=== PATIENT | male | born 1995 | race African-American/Black ===

== ENCOUNTER 2017-08-26 03:45 | Emergency (ER) | payer SELFPAY ==
[~2017-08-26] VITALS: Ht 177.8 cm; Wt 77.1 kg
[2017-08-26] MEDS ORDERED: LACTATED RINGERS 1,000 ML IV STA (03:54)
[2017-08-26] MEDS ORDERED: ONDANSETRON 4 MG/2 ML (SDV) Z0FRAN IVP ONE (04:00)
[2017-08-26 04:05] LABS: BASOPHILS % (AUTO) 0 % (0-10); EOSINOPHILS % (AUTO) 0 % (0-10); HEMATOCRIT 42 % (40-54); HEMOGLOBIN 14.6 G/DL (13.3-17.7); LYMPHOCYTES # (AUTO) 1.8 X 10^3 (1.0-4.0); LYMPHOCYTES % (AUTO) 16 % (12-44); MEAN CORPUSCULAR HEMOGLOBIN 27 PG (25-34); MEAN CORPUSCULAR HGB CONC 34 G/DL (32-36); MEAN CORPUSCULAR VOLUME 79 FL (80-99); MEAN PLATELET VOLUME 9.4 FL (7.4-10.4); MONOCYTES # (AUTO) 1.1 X 10^3 (0.0-1.0); MONOCYTES % (AUTO) 10 % (0-12); NEUTROPHILS # (AUTO) 8.5 X 10^3 (1.8-7.8); NEUTROPHILS % (AUTO) 75 % (42-75); PLATELET COUNT 236 10^3/uL (130-400); RED BLOOD COUNT 5.36 10^6/uL (4.35-5.85); RED CELL DISTRIBUTION WIDTH 12.9 % (10.0-14.5); WHITE BLOOD COUNT 11.4 10^3/uL (4.3-11.0)
[2017-08-26 04:20] LABS: ALANINE AMINOTRANSFERASE 14 U/L (0-55); ALBUMIN 4.7 GM/DL (3.2-4.5); ALKALINE PHOSPHATASE 43 U/L (40-136); BILIRUBIN,TOTAL 0.7 MG/DL (0.1-1.0); BUN/CREATININE RATIO 13; CALCIUM 9.1 MG/DL (8.5-10.1); CARBON DIOXIDE 19 MMOL/L (21-32); CHLORIDE 108 MMOL/L (98-107); CREATININE SERUM 0.79 MG/DL (0.60-1.30); GFR ESTIMATED > 60; GLUCOSE 120 MG/DL (70-105); POTASSIUM 3.5 MMOL/L (3.6-5.0); SODIUM 141 MMOL/L (135-145); TOTAL PROTEIN 7.2 GM/DL (6.4-8.2)
[2017-08-26] MEDS ORDERED: LACTATED RINGERS 1,000 ML IV ONE (04:42)
--- NOTE | 2017-08-26 04:42 | ED General ---
General Chief Complaint: Substance Abuse Stated Complaint: AMS,ETOH Nursing Triage Note: PT BROUGHT TO ED BY SO WITH C/O ETOH. SHE STATES HE HAD GONE OUT WITH FRIENDS AND WAS BROUGHT HOME AND DROPPED OFF. SHE STATES HE WAS ON THE LIVING ROOM FLOOR NOT RESPONDING TO HER. PT OUT OF CAR BY THIS RN AND FRIEND OF PT. Nursing Sepsis Screen: No Definite Risk Source of Information: Other (GIRLFRIEND) Exam Limitations: Intoxication History of Present Illness Date Seen by Provider: Aug 26, 2017 Time Seen by Provider: 04:15 Initial Comments PT ARRIVES VIA POV--REQUIRED FULL ASSIST TO GET OUT OF VEHICLE GIRLFRIEND STATES THAT PT WENT OUT DRINKING TONIGHT AFTER WORK WITH FRIENDS, AND FRIENDS DROPPED HIM OFF AT HOUSE AND LEFT GIRLFRIEND STATES SHE FOUND HIM LAYING ON THE LIVING ROOM FLOOR PASSED OUT/ UNRESPONSIVE. SHE CALLED A FRIEND TO HELP HER GET HIM FROM THE HOUSE TO VEHICLE GIRLFRIEND STATES THAT HE DOES NOT DRINK OFTEN NO DR Allergies and Home Medications Allergies Coded Allergies: No Known Drug Allergies (Unverified , 08/26/17) Constitutional: other (PT UNABLE TO TALK) Past Nneztat-Hndaqi-Hvoovk Hx Immunizations Up To Date Tetanus Booster (TDap): Unknown Family Medical History Other ALL PMH IS NOT OBTAINABLE Physical Exam Vital Signs Vital Signs - First Documented 08/26/17 03:50 Temp 97.1 Pulse 76 Resp 10 B/P (MAP) 108/49 (68) O2 Delivery Room Air Capillary Refill : Less Than 3 Seconds General Appearance: Other (PT UNRESPONSIVE. REEKS OF ETOH. PT WITHOUT ANY SNOROUS BREATHING AND ABLE TO MAINTAIN AIRWAY, AND O2 SATS REMAINED IN MID TO UPPER 90'S ON ROOM AIR. NO VOMITING OR EVIDENCE OF ASPIRATION. ) Respiratory: Normal Breath Sounds Cardiovascular: Regular Rate, Rhythm Neurologic/Psychiatric: Other (UNRESPONSIVE) Skin: Other (NO EXTERNAL EVIDENCE OF TRAUMA) Progress/Results/Core Measures Suspected Sepsis Recent Fever Within 48 Hours: No Infection Criteria Present: None New/Unexplained Altered Menta: No Sepsis Screen: No Definite Risk Sepsis Diagnosis: SIRS Temperature:97.1 Pulse: 76 Respiratory Rate: 10 Laboratory Tests 08/26/17 03:50: White Blood Count 11.4H Blood Pressure 108 /49 Mean: 68 Laboratory Tests 08/26/17 03:50: Creatinine 0.79, Platelet Count 236, Total Bilirubin 0.7 Results/Orders Lab Results Laboratory Tests Test 08/26/17 03:50 Range/Units White Blood Count 11.4 H 4.3-11.0 10^3/uL Red Blood Count 5.36 4.35-5.85 10^6/uL Hemoglobin 14.6 13.3-17.7 G/DL Hematocrit 42 40-54 % Mean Corpuscular Volume 79 L 80-99 FL Mean Corpuscular Hemoglobin 27 25-34 PG Mean Corpuscular Hemoglobin Concent 34 32-36 G/DL Red Cell Distribution Width 12.9 10.0-14.5 % Platelet Count 236 130-400 10^3/uL Mean Platelet Volume 9.4 7.4-10.4 FL Neutrophils (%) (Auto) 75 42-75 % Lymphocytes (%) (Auto) 16 12-44 % Monocytes (%) (Auto) 10 0-12 % Eosinophils (%) (Auto) 0 0-10 % Basophils (%) (Auto) 0 0-10 % Neutrophils # (Auto) 8.5 H 1.8-7.8 X 10^3 Lymphocytes # (Auto) 1.8 1.0-4.0 X 10^3 Monocytes # (Auto) 1.1 H 0.0-1.0 X 10^3 Eosinophils # (Auto) 0.0 0.0-0.3 10^3/uL Basophils # (Auto) 0.0 0.0-0.1 10^3/uL Sodium Level 141 135-145 MMOL/L Potassium Level 3.5 L 3.6-5.0 MMOL/L Chloride Level 108 H 98-107 MMOL/L Carbon Dioxide Level 19 L 21-32 MMOL/L Anion Gap 14 5-14 MMOL/L Blood Urea Nitrogen 10 7-18 MG/DL Creatinine 0.79 0.60-1.30 MG/DL Estimat Glomerular Filtration Rate > 60 BUN/Creatinine Ratio 13 Glucose Level 120 H 70-105 MG/DL Calcium Level 9.1 8.5-10.1 MG/DL Total Bilirubin 0.7 0.1-1.0 MG/DL Aspartate Amino Transf (AST/SGOT) 20 5-34 U/L Alanine Aminotransferase (ALT/SGPT) 14 0-55 U/L Alkaline Phosphatase 43 40-136 U/L Total Protein 7.2 6.4-8.2 GM/DL Albumin 4.7 H 3.2-4.5 GM/DL Serum Alcohol 169 H <10 MG/DL My Orders Orders - JIMBO DUBOIS DO Saline Lock/Iv-Start (08/26/17 03:54) Lactated Ringers (Lr 1000 Ml Iv Solution (08/26/17 03:54) Ondansetron Injection (Zofran Injectio (08/26/17 04:00) Alcohol (08/26/17 03:54) Comprehensive Metabolic Panel (08/26/17 03:54) Cbc With Automated Diff (08/26/17 03:54) Lactated Ringers (Lr 1000 Ml Iv Solution (08/26/17 04:42) Medications Given in ED Current Medications Medications Dose Ordered Sig/Rajni Route Start Time Stop Time Status Last Admin Dose Admin Lactated Ringer's 1,000 ml @ 0 mls/hr Q0M ONCE IV 08/26/17 04:42 08/26/17 04:44 DC 08/26/17 04:45 0 MLS/HR Ondansetron HCl 4 mg ONCE ONCE IVP 08/26/17 04:00 08/26/17 04:01 DC 08/26/17 03:50 4 MG Vital Signs/I&O Vital Sign - Last 12Hours 08/26/17 03:50 Temp 97.1 Pulse 76 Resp 10 B/P (MAP) 108/49 (68) O2 Delivery Room Air Capillary Refill : Less Than 3 Seconds Blood Pressure Mean: 68 Progress Note : Progress Note PT SLEPT FOR ENTIRE ER STAY 1830--ABLE TO EASILY WAKE PT AND HE IS ABLE TO FOLLOW COMMANDS, SPEECH CLEAR AND GAIT STEADY AND IS ABLE TO WALK TO AND FROM BATHROOM ON HIS OWN WITHOUT DIFFICULTY Departure Impression Impression: Primary Impression: Alcohol intoxication Disposition: 01 HOME, SELF-CARE Condition: Improved Departure-Patient Inst. Referrals: NO,LOCAL PHYSICIAN (PCP/Family) Primary Care Physician Patient Instructions: ALCOHOL AND SUBSTANCE ABUSE Add. Discharge Instructions: HOME, REST LOTS OF CLEAR LIQUIDS TODAY TYLENOL NEEDED FOR PAIN NO ALCOHOL FOLLOW UP WITH DR OF CHOICE NEEDED All discharge instructions reviewed with patient and/or family. Voiced understanding. JIMBO DUBOIS DO Aug 26, 2017 04:42
[2017-08-26 06:57] VITALS: BP 91/47
--- OUTSIDE RECORDS SUMMARY | 2017-08-27 10:57 | XMS REPORT | Continuity of Care Document ---
Author Author [facility] Organization [facility] Address Unknown Phone Unavailable Allergies There is no data. Medications There is no data. Problems There is no data. Procedures Code Description Performed By Performed On LINEAR REP LID Casey Morales DO 11/17/2012 Results There is no data. Encounters ACCT No. Visit Date/Time Discharge Status Pt. Type Provider Facility Loc./Unit Complaint [id number] 11/17/2012 13:51:00 11/17/2012 16:04:00 DIS Emergency Casey Tong DO [email or web address]
== END 2017-08-26 06:57 | disposition home or self-care (01) ==
LOC: ER 03:48
DX: F10.129 Alcohol abuse with intoxication, unspecified (principal)
CPT/HCPCS: 36415; 80053; 80320; 85025; 96361; 96374